=== PATIENT | male | born 1990 | race Caucasian/White ===

== ENCOUNTER 2021-11-21 22:27 | Inpatient (IN) | payer MEDICAID ==
[~2021-11-21] VITALS: Ht 162.6 cm; Wt 72.6 kg
[2021-11-21] MEDS ORDERED: SODIUM CHLORIDE 0.9% 1000ML BAG (SEPSIS BOLUS) IV ONE (23:30)
[2021-11-21 23:40] LABS: CHLORIDE 103 mEq/L (98-107); HEMATOCRIT. 50.6 % (42.0-52.0); MEAN CORPUSCULAR HEMOGLOBIN 29.8 pg (28.0-32.0); MEAN CORPUSCULAR VOLUME 88.5 fL (80.0-94.0); PLATELET 380 x1000/uL (130-400); RED BLOOD CELL COUNT 5.72 mill/uL (4.7-6.1); RED CELL DISTRIBUTION WIDTH 13.5 % (11.6-14.6)
[2021-11-21 23:52] LABS: CREATINE KINASE 252 IU/L (39-308); ETHANOL BLOOD < 10 mg/dL
[2021-11-21 23:53] LABS: PLATELET ESTIMATE NORMAL
[2021-11-22 00:53] LABS: CLARITY URINE CLEAR (CLEAR); COLOR URINE YELLOW (YELLOW); KETONES URINE 1+ (NEGATIVE); LEUKOCYTE ESTERASE URINE TRACE (NEGATIVE); NITRITE URINE NEGATIVE (NEGATIVE); OCCULT BLOOD URINE TRACE (NEGATIVE); PROTEIN URINE 1+ (NEGATIVE); SPECIFIC GRAVITY URINE 1.009 (1.005-1.030); UROBILINOGEN URINE 0.2 E.U./dL (0.2-1.0)
[2021-11-22 01:07] LABS: *AMPHETAMINES SCREEN URINE PRESUMTIVE POSITIVE (NEGATIVE); *BARBITURATES SCREEN URINE NEGATIVE (NEGATIVE); *BENZODIAZEPINES SCREEN URINE NEGATIVE (NEGATIVE); *COCAINE SCREEN URINE NEGATIVE (NEGATIVE); CANNABINOID URINE SCREEN NEGATIVE (NEGATIVE); METHADONE URINE SCREEN NEGATIVE (NEGATIVE); OPIATES URINE SCREEN NEGATIVE (NEGATIVE); PHENCYCLIDINE URINE SCREEN NEGATIVE (NEGATIVE)
[2021-11-22] MEDS ORDERED: ONDANSETRON HCL 4MG/2ML INJ IV PRN (01:15)
[2021-11-22] MEDS ORDERED: POTASSIUM CHLORIDE 20MEQ TABLET SR PO NR (01:15)
[2021-11-22] MEDS ORDERED: MAGNESIUM/ALUMINUM HYDROXIDE/SIMETHICONE 30ML UDC PO PRN (01:15)
[2021-11-22] MEDS ORDERED: ACETAMINOPHEN 325MG TABLET PO PRN ×2 (01:15)
[2021-11-22] MEDS ORDERED: DIPHENHYDRAMINE 50MG/ML VIAL IV PRN (01:15)
[2021-11-22] MEDS ORDERED: CEFTRIAXONE 1 G PREMIX 50 ML IV ONE (02:15)
[2021-11-22] MEDS ORDERED: IOHEXOL-300 100 ML BOTTLE ONE (05:18)
[2021-11-22] MEDS: SODIUM CHLORIDE 0.9% INJ 3ML FLUSH IVF SCH ×3 (05:59→22:04)
[2021-11-22 10:45] VITALS: BP 124/76
[2021-11-22 12:00] VITALS: BP 130/84
[2021-11-22 16:00] VITALS: BP 102/62
[2021-11-22 16:42] LABS: CHLORIDE 108 mEq/L (98-107)
[2021-11-22 20:00] VITALS: BP 134/71
[2021-11-23] VITALS: BP 100/64
[2021-11-23 04:00] VITALS: BP 99/63
[2021-11-23] MEDS: SODIUM CHLORIDE 0.9% INJ 3ML FLUSH IVF SCH (06:03)
[2021-11-23 08:00] VITALS: BP 97/53
[2021-11-23 11:43] VITALS: BP 104/66
[2021-11-23 11:45] VITALS: BP 104/66
== END 2021-11-23 13:50 | disposition home or self-care (01) | DRG 52 ==
LOC: ER 22:27 → MICUSO 11-22 02:58 → EDBD 11-22 02:58 → 6WST 11-22 11:07
PROVIDERS: ADMIT Internal Medicine; ATTEND Internal Medicine
DX: G92.8 Other toxic encephalopathy (principal); D72.829 Elevated white blood cell count, unspecified; E87.6 Hypokalemia; F15.90 Other stimulant use, unspecified, uncomplicated; R10.9 Unspecified abdominal pain; F17.200 Nicotine dependence, unspecified, uncomplicated; Z20.822 Contact with and (suspected) exposure to COVID-19; Z59.00 Homelessness unspecified; Z86.16 Personal history of COVID-19; Z71.51 Drug abuse counseling and surveillance of drug abuser
CPT/HCPCS: 36415; 71045; 74177; 80048; 80053; 80305; 80307; 80320; 80329; 81003; 82550; 82962; 83605; 83735; 83880; 84484; 85025; 87426; 93005; 99291; J0696; J7030; Q9967; G0480